=== PATIENT | male | born 1940 | race Caucasian/White ===

== ENCOUNTER 2017-10-24 10:46 | Inpatient (IN) | payer OTHER, MEDICARE ==
[~2017-10-24] VITALS: Ht 172.7 cm; Wt 86.6 kg
[2017-10-24] MEDS ORDERED: AMILORIDE5 MG PO (12:45)
[2017-10-24] MEDS ORDERED: LIPITOR10 M1 PO (12:45)
[2017-10-24] MEDS ORDERED: AMLODIPINE5 MG PO (12:45)
[2017-10-24] MEDS ORDERED: BUPROPION100 MG PO (12:46)
[2017-10-24] MEDS ORDERED: CLONAZEPAM1 MG PO (12:46)
[2017-10-24] MEDS ORDERED: LEVOTHYROXIN75 MCG PO (12:47)
[2017-10-24] MEDS ORDERED: MAGNESIUM400 M1 PO (12:48)
[2017-10-24] MEDS ORDERED: METFORMIN500 MG PO (12:48)
[2017-10-24] MEDS ORDERED: LOSARTAN POTASS50 MG PO (12:48)
[2017-10-24] MEDS ORDERED: K-TAB20 MEQ PO (12:51)
[2017-10-24] MEDS ORDERED: PEG 401 IO (12:51)
[2017-10-24] MEDS ORDERED: SERTRALINE100 MG PO (12:52)
[2017-10-28] VITALS (7 sets, daily range): BP systolic 113–142; BP diastolic 72–88
[2017-10-29] VITALS (7 sets, daily range): BP systolic 131–161; BP diastolic 72–93
[2017-10-29 05:15] LABS: HEMATOCRIT 37.6 % (39.0-50.0); HEMOGLOBIN 12.2 g/dl (14.0-18.0); IMMATURE GRANULOCYTES 0.5 % (0.0-1.0); MEAN CELL VOLUME 81.2 fL CALC (80.0-100.0); MEAN CORPUSCULAR HGB 26.3 pG CALC (26.0-32.0); MEAN CORPUSCULAR HGB CONC 32.4 g/L CALC (32.0-36.0); NEUT# 8.15 thou/uL (1.82-7.42); RED BLOOD COUNT 4.63 mill/uL (4.70-6.10); RED CELL DISTRI WIDTH 15.4 % (11.5-15.5)
[2017-10-29 05:35] LABS: ANION GAP 17 (6-22 (CALC)); BUN 13 mg/dL (8-23); BUN/CREATININE RATIO 16 (12-20 (CALC)); CARBON DIOXIDE 22 mmol/l (22-30); CHLORIDE 108 mmol/l (95-108); CREATININE 0.8 mg/dL (0.7-1.3); GFR > 60 ML/MIN (>=60 (CALC)); GFR FOR AFR.AMER. > 60 ML/MIN (>=60 (CALC)); MAGNESIUM 1.8 mg/dL (1.6-2.3); POTASSIUM 3.6 mmol/l (3.5-5.1); SODIUM 144 mmol/l (137-146)
[2017-10-30] VITALS (7 sets, daily range): BP systolic 120–157; BP diastolic 62–90
[2017-10-30 05:37] LABS: HEMATOCRIT 37.7 % (39.0-50.0); HEMOGLOBIN 11.9 g/dl (14.0-18.0); MEAN CELL VOLUME 82.7 fL CALC (80.0-100.0); MEAN CORPUSCULAR HGB 26.1 pG CALC (26.0-32.0); MEAN CORPUSCULAR HGB CONC 31.6 g/L CALC (32.0-36.0); RED BLOOD COUNT 4.56 mill/uL (4.70-6.10); RED CELL DISTRI WIDTH 15.6 % (11.5-15.5)
[2017-10-30 05:56] LABS: ANION GAP 16 (6-22 (CALC)); BUN 17 mg/dL (8-23); BUN/CREATININE RATIO 18 (12-20 (CALC)); CARBON DIOXIDE 27 mmol/l (22-30); CHLORIDE 103 mmol/l (95-108); CREATININE 0.9 mg/dL (0.7-1.3); GFR > 60 ML/MIN (>=60 (CALC)); GFR FOR AFR.AMER. > 60 ML/MIN (>=60 (CALC)); MAGNESIUM 1.9 mg/dL (1.6-2.3); POTASSIUM 3.3 mmol/l (3.5-5.1); SODIUM 142 mmol/l (137-146)
[2017-10-30 08:39] LABS: URINE BILIRUBIN - DIPSTICK NEGATIVE (NEGATIVE); URINE BLOOD DIPSTICK LARGE (NEGATIVE); URINE COLOR YELLOW; URINE GLUCOSE - DIPSTICK NEGATIVE (NEGATIVE); URINE KETONE 15 mg/dL (NEGATIVE); URINE LEUK ESTERASE TRACE (Negative); URINE NITRITE - DIPSTICK NEGATIVE (Negative); URINE PROTEIN - DIPSTICK TRACE mg/dL (NEG-TRACE); URINE UROBILINOGEN - DIPSTICK 0.2 E.U./dL (0.2)
[2017-10-30 08:40] LABS: URINE CLARITY CLEAR
[2017-10-30 08:49] LABS: URINE RBC 25-50 RBC/hpf (0-5)
[2017-10-31 04:20] VITALS: BP 144/75
[2017-10-31 05:45] LABS: ANION GAP 17 (6-22 (CALC)); BUN 18 mg/dL (8-23); BUN/CREATININE RATIO 19 (12-20 (CALC)); CARBON DIOXIDE 27 mmol/l (22-30); CHLORIDE 101 mmol/l (95-108); GFR > 60 ML/MIN (>=60 (CALC)); GFR FOR AFR.AMER. > 60 ML/MIN (>=60 (CALC)); POTASSIUM 3.7 mmol/l (3.5-5.1); SODIUM 141 mmol/l (137-146)
[2017-10-31 05:47] LABS: HEMATOCRIT 38.1 % (39.0-50.0); MEAN CELL VOLUME 83.6 fL CALC (80.0-100.0); MEAN CORPUSCULAR HGB 26.3 pG CALC (26.0-32.0); MEAN CORPUSCULAR HGB CONC 31.5 g/L CALC (32.0-36.0); RED BLOOD COUNT 4.56 mill/uL (4.70-6.10); RED CELL DISTRI WIDTH 15.4 % (11.5-15.5)
[2017-10-31 07:32] VITALS: BP 132/80
[2017-10-31 07:44] VITALS: BP 132/80
[2017-10-31] MEDS ORDERED: PERCOCET 10/31 COMBO PO (11:09)
[2017-10-31] MEDS ORDERED: TAMSULOSIN HCL0.4 MG PO (11:09)
[2017-10-31] MEDS ORDERED: KEFLEX500 M1 PO (11:09)
== END 2017-10-31 14:18 | disposition home health service (06) | DRG 483 ==
LOC: MS2 10-28 07:58
PROVIDERS: Nurse Practitioner Family; ADMIT Orthopaedic Surgery; ATTEND Internal Medicine
PROC: 0RRK00Z Replacement of Left Shoulder Joint with Reverse Ball and Socket Synthetic Substitute, Open Approach (ICD-10-PCS; principal; 2017-10-28)
PROC: 0LS40ZZ Reposition Left Upper Arm Tendon, Open Approach (ICD-10-PCS; 2017-10-28)
PROC: 0T9B70Z Drainage of Bladder with Drainage Device, Via Natural or Artificial Opening (ICD-10-PCS; 2017-10-28)
DX: S46.012A Strain of muscle(s) and tendon(s) of the rotator cuff of left shoulder, initial encounter (principal); E11.9 Type 2 diabetes mellitus without complications; I11.9 Hypertensive heart disease without heart failure; M19.012 Primary osteoarthritis, left shoulder; S46.212A Strain of muscle, fascia and tendon of other parts of biceps, left arm, initial encounter; F43.10 Post-traumatic stress disorder, unspecified; F41.9 Anxiety disorder, unspecified; F32.9 Major depressive disorder, single episode, unspecified; N40.1 Benign prostatic hyperplasia with lower urinary tract symptoms; R33.8 Other retention of urine; E87.6 Hypokalemia; R50.82 Postprocedural fever; K59.09 Other constipation; W19.XXXA Unspecified fall, initial encounter; Y92.89 Other specified places as the place of occurrence of the external cause; Z87.891 Personal history of nicotine dependence
CPT/HCPCS: J1650